=== PATIENT | male | born 1930 | race Caucasian/White ===

== ENCOUNTER → 2017-02-19 | Outpatient (CLI) | payer MEDICARE, BC | END | disposition home or self-care (01) | LOC: LABWHC1 13:09 | PROVIDERS: ATTEND Family Medicine | DX: Z53.9 Procedure and treatment not carried out, unspecified reason (principal) | CPT/HCPCS: 36415; 80053; 85027; 86850; 86900; 86901; 86920 ==

== ENCOUNTER 2017-12-24 09:08 | Day surgery (SDC) | payer MEDICARE, BC ==
[2017-12-22 15:25] VITALS: BMI 24.2
[~2017-12-24 09:08] MED LIST: LACTATED RINGERS 1,000 ML IV SCH; LIDOCAINE 1% 20 ML VIAL (10MG/ML) FOR IV START INTRADERMA PRN
[2017-12-24 09:54] VITALS: RESP 18; TEMP 98
[2017-12-24] MEDS ORDERED: LACTATED RINGERS 1,000 ML IV ONE (09:54)
[2017-12-24] MEDS ORDERED: LIDOCAINE 1% INJ 10MG/ML (20 ML MDV) ONE (10:42)
[2017-12-24] MEDS ORDERED: PROPOFOL 10 MG/ML 20 ML VIAL IV ONE (10:42)
--- NOTE | 2017-12-24 10:42 | P.GSHP ---
History of Present Illness H&P Date: 12/24/17 Chief Complaint: GI bleed This is a 87-year-old male referred from Dr. Barbie bean. Patient presents today for colonoscopy. He's had issues with GI bleed. Past Medical History Past Medical History: Cancer, GERD/Reflux, Prostate Disorder Additional Past Medical History / Comment(s): constipation, prostate cancer(tx with radiation), hx skin cancer History of Any Multi-Drug Resistant Organisms: None Reported Past Surgical History: Appendectomy Additional Past Surgical History / Comment(s): skin cancer removed from rt ear, jaw surgery, Past Anesthesia/Blood Transfusion Reactions: Motion Sickness Smoking Status: Former smoker - Past Family History Mother Family Medical History: No Reported History Medications and Allergies Home Medications Medication Instructions Recorded Confirmed Type Atorvastatin [Lipitor] 10 mg PO HS 12/22/17 12/22/17 History Bicalutamide [Casodex] 50 mg PO DAILY 12/22/17 12/22/17 History Calcium Carbonate [Calcium] 600 mg PO BID 12/22/17 12/22/17 History Calcium Carbonate [Tums] 500 mg PO DAILY PRN 12/22/17 12/22/17 History Cholecalciferol [Vitamin D3] 5,000 unit PO DAILY 12/22/17 12/22/17 History Multivitamins, Thera [Multivitamin 1 tab PO DAILY 12/22/17 12/22/17 History (formulary)] Sennosides/Docusate Sodium [Dok 1 each PO DAILY PRN 12/22/17 12/22/17 History Plus Tablet] Tadalafil [Cialis] 5 mg PO DAILY 12/22/17 12/22/17 History Vit C/E/Zn/Coppr/Lutein/Zeaxan 1 each PO BID 12/22/17 12/22/17 History [Preservision Areds 2 Softgel] amLODIPine [Norvasc] 5 mg PO DAILY 12/22/17 12/22/17 History Allergies Allergy/AdvReac Type Severity Reaction Status Date / Time No Known Allergies Allergy Verified 12/22/17 15:10 Surgical - Exam Vital Signs Temp Pulse Resp BP Pulse Ox 98.0 F 81 18 123/58 97 12/24/17 09:53 12/24/17 09:53 12/24/17 09:53 12/24/17 09:53 12/24/17 09:53 - General well developed, no distress - Eyes PERRL - ENT normal pinna - Neck no masses - Respiratory normal expansion - Cardiovascular Rhythm: regular - Abdomen Abdomen: non tender Assessment and Plan Assessment: Rectal bleeding. We'll perform
--- NOTE | 2017-12-24 10:58 | P.OP ---
Date of Procedure: 12/24/17 Preoperative Diagnosis: Rectal bleeding Postoperative Diagnosis: External hemorrhoids Diverticulosis Procedure(s) Performed: Colonoscopy Anesthesia: MAC Surgeon: Mike Diaz Pathology: none sent Condition: stable Disposition: PACU Description of Procedure: The patient's placed on the endoscopy table lateral position. He received IV sedation. Digital rectal exam was performed which revealed mild internal and external hemorrhoids. The prostate was symmetric without nodules. The flexible colonoscope was then placed patient anus passed throughout the entire colon. Ileocecal valve was visually. The cecum, ascending and transverse colon appeared normal. In the descending and sigmoid colon there is moderate diverticular changes. Scope was then brought back the rectum and this appeared normal. Scope was then withdrawn and there was internal and external hemorrhoids seen. Scope was withdrawn for patient.
[2017-12-24 11:27] VITALS: BP 123/60; PULSE 68
--- NOTE | 2017-12-30 07:18 | CDI ---
Outpatient Documentation Clarification Form Date: 12/30/2017 CDS/Material Engineer Name: Nemesio Sanabria Phone: If any questions, call Violeta Castanon Net Trainer at [phone] Patient Name: Bernardo Aguirre Admit Date: 12/24/2017 Discharge Date: 12/24/2017 ATTENTION: The [facility] Coding Staff appreciate your assistance in clarifying documentation. Please respond to the clarification below the line at the bottom and electronically sign. The [facility] Coding staff will review the response and follow-up if needed. Please note: Queries are made part of the Legal Health Record. If you have any questions, please contact the Net Trainer. Dear Dr. Diaz, Indication for colonoscopy was rectal bleeding; Post-operative diagnosis was Internal and external hemorrhoids, Please clarify the etiology of Rectal Bleeding was this secondary to hemorrhoids or incidental finding Based on your clinical opinion please clarify the etiology of Rectal Bleeding and relation with hemorrhoids Thank you for your kind consideration. the rectal bleeding was secondary to hemorrhoids. MTDD
== END 2017-12-24 11:48 | disposition home or self-care (01) ==
LOC: ORWHC2ENDO 09:08
PROVIDERS: ATTEND Surgery
DX: K57.30 Diverticulosis of large intestine without perforation or abscess without bleeding (principal); K62.5 Hemorrhage of anus and rectum; K64.8 Other hemorrhoids; I10 Essential (primary) hypertension; K64.4 Residual hemorrhoidal skin tags; K21.9 Gastro-esophageal reflux disease without esophagitis; E78.5 Hyperlipidemia, unspecified; Z85.46 Personal history of malignant neoplasm of prostate; Z85.828 Personal history of other malignant neoplasm of skin; Z87.891 Personal history of nicotine dependence; Z79.899 Other long term (current) drug therapy
CPT/HCPCS: 45378; J2001; J2704

== ENCOUNTER → 2019-10-21 | Outpatient (CLI) | payer MEDICARE, BC ==
[2019-10-21 15:46] LABS: Basophils # (A) 0.1 k/uL (0-0.2); Basophils % (A) 1 %; Eosinophils # (A) 0.2 k/uL (0-0.7); Eosinophils % (A) 2 %; HCT 36.7 % (39.0-53.0); Lymphocytes # (A) 2.3 k/uL (1.0-4.8); Lymphocytes % (A) 31 %; MCH 31.9 pg (25.0-35.0); MCHC 32.8 g/dL (31.0-37.0); MCV 97.3 fL (80.0-100.0); Mean Platelet Volume 7.3; Monocytes # (A) 0.4 k/uL (0-1.0); Monocytes % (A) 6 %; Neutrophils # (A) 4.3 k/uL (1.3-7.7); Neutrophils % (A) 57 %; Platelet Count 305 k/uL (150-450); RBC 3.77 m/uL (4.30-5.90); RDW 12.9 % (11.5-15.5); WBC 7.5 k/uL (3.8-10.6)
[2019-10-22 00:52] LABS: African American GFR (CKD) 51.6 (60.0-200.0); Anion Gap 9.4 mmol/L (4.00-12.00); BUN/Creat Ratio 22.14 Ratio (12.00-20.00); Calcium 8.9 mg/dL (8.7-10.3); Carbon Dioxide 25.6 mmol/L (21.6-31.8); Non-African American GFR(CKD) 44.5 (60.0-200.0); Potassium 4.7 mmol/L (3.5-5.5)
== END | disposition home or self-care (01) ==
LOC: LABWHC1 14:31
PROVIDERS: ATTEND Radiology Radiation Oncology
DX: C61 Malignant neoplasm of prostate (principal)
CPT/HCPCS: 36415; 80048; 85025

== ENCOUNTER → 2019-10-28 | Outpatient (CLI) | payer MEDICARE, BC ==
--- NOTE | 2019-10-28 14:04 | MR ---
EXAMINATION TYPE: MR brain wo/w con DATE OF EXAM: 10/28/2019 COMPARISON: Outside CT head September 06, 2019. Outside MRI brain report HISTORY: Ischemic Stroke TECHNIQUE: Multiplanar, multisequence images of the brain and brainstem is performed without and with IV contras t, utilizing 7 mL intravenous Gadavist . FINDINGS: Diffusion weighted images demonstrate no evidence of a recent infarct or other diffusion ab normality. Focus of intraparenchymal hemorrhage left parietal temporal region showing areas of T1 and T2 hyperintensity along with T1 and T2 hypointensity along the periphery is identified and discussed on prior outside MRI report. Area of concern measures roughly 13 mm transversely by 9 mm AP diameter by 6 mm craniocaudal dimension on axial image 16 and sagittal image 4. Area shows increased signal d iffusion weighted images with diminished signal ADC mapping. Ventricular and sulcal prominence redemonstrated. There are areas T2 hyperintensity throughout the wh ite matter again seen most prominent periventricular levels where there are confluent areas identifie d. Midline structures demonstrate normal morphology. The craniocervical junction appears within normal limits. Post contrast images demonstrate no abnormal enhancement. The dural venous sinuses appear pa tent. The visualized sinuses are clear and the globes are intact. IMPRESSION: Comparison with prior report shows focus of subacute on chronic hemorrhage or hemorrhagic infarct near left-sided parietotemporal junction diminished in size from outside report with backgro und [id number] diffuse cerebral atrophy and moderate to severe chronic small vessel ischemic ch deidre identified on current study. No evidence of new acute hemorrhage or recent infarct.
== END | disposition home or self-care (01) ==
LOC: RADMRIMAIN 11:10
PROVIDERS: ATTEND Psychiatry & Neurology Vascular Neurology
DX: I63.9 Cerebral infarction, unspecified (principal)
CPT/HCPCS: 70553; A9585

== ENCOUNTER → 2020-07-17 | Outpatient (CLI) | payer MEDICARE, BC ==
--- NOTE | 2020-07-17 16:16 | NM ---
EXAMINATION TYPE: NM bone scan whole body DATE OF EXAM: 07/17/2020 COMPARISON: Bone scan 10/10/2019 HISTORY: Prostate cancer Delayed whole-body scanning was performed following the injection of 22.1 mCi Tc 99m MDP. Images acq uired 3 hours post injection. FINDINGS: There is an abnormal uptake including the region of the anterior right first rib, left shoulder, left fifth rib, left iliac bone posteriorly, sacrum, lumbar spine, thoracic spine. Soft tissue uptake is normal. Uptake in the maxilla and mandible is likely due to periodontal disease. Uptake along the rig ht skull is not as well seen. IMPRESSION: Abnormal uptake is similar to prior exam and consistent with metastatic disease.
== END | disposition home or self-care (01) ==
LOC: RADNMMAIN 11:34
PROVIDERS: ATTEND Urology
DX: C61 Malignant neoplasm of prostate (principal)
CPT/HCPCS: 78306; A9503